=== PATIENT | female | born 1945 | race Caucasian/White ===

== ENCOUNTER 2022-03-03 17:07 | Emergency (ER) | payer MEDICARE, OTHER ==
[~2022-03-03] VITALS: Ht 157.5 cm; Wt 90.9 kg
[2022-03-03] MEDS ORDERED: morphine IR (immed. release) 30mg tablet PO STA (23:19)
[2022-03-03] MEDS ORDERED: cephalexin 500mg capsule PO ONE (23:20)
--- NOTE | 2022-03-03 23:29 | NUR ---
[facility] called: pt is not allergic to morphine and has had it in the past no issue
[2022-03-04] MEDS ORDERED: CEPH-585 PO (00:15)
[2022-03-04] MEDS ORDERED: MORP15TA PO ×2 (00:17→00:26)
[2022-03-04 00:37] VITALS: BP 168/79
== END 2022-03-04 00:39 | disposition home or self-care (01) ==
LOC: ER 17:09
DX: L03.116 Cellulitis of left lower limb (principal); L03.115 Cellulitis of right lower limb; E78.00 Pure hypercholesterolemia, unspecified; I10 Essential (primary) hypertension; Z88.5 Allergy status to narcotic agent; Z88.8 Allergy status to other drugs, medicaments and biological substances; Z79.1 Long term (current) use of non-steroidal anti-inflammatories (NSAID)
CPT/HCPCS: 99283; J7030